=== PATIENT | male | born 1985 | race Caucasian/White ===

== ENCOUNTER 2016-12-07 16:39 | Emergency (ER) | payer MEDICAID ==
[2016-12-07 16:51] VITALS: BP 122/83
[2016-12-07] MEDS ORDERED: Lidocaine 1% MPF wEPI 200,000* 30 ML SDV INJ ONE (17:38)
--- NOTE | 2016-12-07 17:41 | UC ---
Skin Complaint HPI - HPI Summary HPI Summary: abscess left buttock x 1 month no f/c has drained a couple of times no hx MRSA - History of Current Complaint Chief Complaint: UCGeneralIllness Time Seen by Provider: 12/07/16 17:33 Stated Complaint: PERSONAL/SKIN Hx Obtained From: Patient Onset/Duration: Gradual Onset, Lasting Weeks, Worse Since - days Timing: Constant Onset Severity: Mild Current Severity: Mild Pain Intensity: 4 Pain Scale Used: 0-10 Numeric Location: Other - LEFT BUTTOCK Character: Swelling, Painful Aggravating: Touch Associated Signs & Symptoms: Positive: Negative - Allergy/Home Medications Allergies/Adverse Reactions: Allergies Allergy/AdvReac Type Severity Reaction Status Date / Time No Known Allergies Allergy Verified 12/07/16 16:51 Home Medications: Home Medications Hydrochlorothiazide TAB* [Hydrodiuril TAB*] 25 mg PO DAILY 12/07/16 [History Confirmed 12/07/16] Medical Marijuana PRN 12/07/16 [History] Review of Systems Constitutional: Negative Skin: Negative Eyes: Negative ENT: Negative Respiratory: Negative Cardiovascular: Negative Gastrointestinal: Negative Genitourinary: Negative Motor: Negative Neurovascular: Negative Musculoskeletal: Negative Neurological: Negative Psychological: Negative All Other Systems Reviewed And Are Negative: Yes PMH/Surg Hx/FS Hx/Imm Hx Previously Healthy: Yes - herion addiction - in remission Other History Of: Hepatitis C Negative For: Anticoagulant Therapy - Surgical History Surgical History: Yes Surgery Procedure, Year, and Place: Benign tumor in knee, WISDOM TEETH EXTRACTION - Family History Known Family History: Positive: Hypertension - Social History Alcohol Use: Occasionally Substance Use Type: Marijuana Substance Use Comment - Amount & Last Used: no heroin in 1 1/2 years; is a medical cannabis pt. in [place] Smoking Status (MU): Heavy Every Day Tobacco Smoker Type: Cigarettes Amount Used/How Often: 1/2 - 1 ppd Household Exposure Type: Cigarettes Physical Exam Triage Information Reviewed: Yes Appearance: Well-Appearing, No Pain Distress, Well-Nourished Vital Signs: Initial Vital Signs Temp 98.4 F 12/07/16 16:42 Pulse 81 12/07/16 16:42 Resp 17 12/07/16 16:42 BP 122/83 12/07/16 16:42 Pulse Ox 99 12/07/16 16:42 Vital Signs Reviewed: Yes Eyes: Positive: Conjunctiva Clear ENT: Positive: Hearing grossly normal. Negative: Nasal congestion, Nasal drainage, Trismus, Muffled/hoarse voice Neck: Positive: Supple, Nontender Respiratory: Positive: Lungs clear, Normal breath sounds, No respiratory distress, No accessory muscle use Cardiovascular: Positive: RRR, No Murmur Musculoskeletal: Positive: ROM Intact Neurological: Positive: Alert Skin Exam: Normal Course/Dx - Diagnoses Provider Diagnoses: left buttock abscess. Incision and drainage Procedures - Procedure Summary Procedure Summary: I & D left buttock abscess time out sterile prep anest with 2 cc lido plus epi incised 1 cc pus culture obtained - Incision and Drainage Site: left buttock Anesthesia: Lidocaine Instrument(s): Scalpel Packing: Other - no packing sterile dressing applies Discharge - Discharge Plan Condition: Stable Disposition: HOME Prescriptions: DOXYcycline CAP(*) [DOXYcycline 100MG CAP(*)] 100 mg PO BID #28 cap Patient Education Materials: Abscess (ED) Referrals: [facility] [Outside] (call for help finding a primary care provider) Additional Instructions: warm soapy compresses 4x day recheck for worsening symptom or if not noting improvement over the next 3-4 days
== END 2016-12-07 18:21 | disposition home or self-care (01) ==
LOC: UCCORT 16:39
DX: L02.31 Cutaneous abscess of buttock (principal); F17.210 Nicotine dependence, cigarettes, uncomplicated
CPT/HCPCS: 10060; 87070; 87077; 87186; 87205; 87640; 87641; 99212; G0463; J2001

== ENCOUNTER 2017-01-17 14:20 | Emergency (ER) | payer MEDICAID ==
[2017-01-17 14:45] VITALS: BP 131/71
== END 2017-01-17 15:38 | disposition left against medical advice (07) ==
LOC: UCEAST 14:20
DX: M79.9 Soft tissue disorder, unspecified (principal); Z53.21 Procedure and treatment not carried out due to patient leaving prior to being seen by health care provider

== ENCOUNTER 2017-05-19 18:25 | Emergency (ER) | payer SELFPAY ==
--- NOTE | 2017-05-19 19:10 | ED ---
Skin Complaint - HPI Summary HPI Summary: 32M presents with abscess on left buttock that has been presents with for a month. It was been getting worst for pat 4 days. He has not recurrent abscess to the area. He has history of RA and is not on any medication currently. He denies any fever or general illness. He has been using his fingers to pop the area and used a needle a couple times. He has had minimal pus from the area. He has been placing heat on the area. He denies any history of MRSA. - History of Current Complaint Chief Complaint: EDRashSkinAbscess Time Seen by Provider: 05/19/17 18:40 Stated Complaint: ABSCESS Pain Intensity: 8 - Allergy/Home Medications Allergies/Adverse Reactions: Allergies Allergy/AdvReac Type Severity Reaction Status Date / Time No Known Allergies Allergy Verified 01/17/17 14:45 PMH/Surg Hx/FS Hx/Imm Hx Endocrine/Hematology History: Denies: Hx Anticoagulant Therapy, Hx Diabetes, Hx Thyroid Disease Cardiovascular History: Reports: Hx Hypertension Denies: Hx Pacemaker/ICD Respiratory History: Denies: Hx Asthma, Hx Chronic Obstructive Pulmonary Disease (COPD) History: Denies: Hx Renal Disease Neurological History: Denies: Hx Dementia, Hx Seizures Psychiatric History: Reports: Hx Substance Abuse - Surgical History Surgery Procedure, Year, and Place: Benign tumor in knee, WISDOM TEETH EXTRACTION - Immunization History Date of Tetanus Vaccine: unknown Date of Influenza Vaccine: no Immunizations Up to Date: Yes Infectious Disease History: No Infectious Disease History: Reports: Hx Hepatitis - C, Hx Shingles Denies: Hx Human Immunodeficiency Virus (HIV), Traveled Outside the [place] in Last 30 Days - Family History Known Family History: Positive: Hypertension - Social History Alcohol Use: Rare Substance Use Type: Reports: Marijuana Substance Use Comment - Amount & Last Used: Medical useage Hx Tobacco Use: Yes Smoking Status (MU): Heavy Every Day Tobacco Smoker Type: Cigarettes Amount Used/How Often: 1/2 - 1 ppd Review of Systems Negative: Fever Negative: Chest Pain Negative: Shortness Of Breath Positive: Other - abscess left buttock All Other Systems Reviewed And Are Negative: Yes Physical Exam Triage Information Reviewed: Yes Vital Signs On Initial Exam: Initial Vitals Temp Pulse Resp BP Pulse Ox 98.3 F 100 17 168/96 98 05/19/17 18:36 05/19/17 18:36 05/19/17 18:36 05/19/17 18:36 05/19/17 18:36 Vital Signs Reviewed: Yes Appearance: Positive: Well-Appearing Skin: Positive: Warm, Dry, Other - 4cm by 6cm area of erythema and induration Head/Face: Positive: Normal Head/Face Inspection Eyes: Positive: Normal, Conjunctiva Clear Respiratory/Lung Sounds: Positive: Clear to Auscultation, Breath Sounds Present Cardiovascular: Positive: Normal, RRR Musculoskeletal: Positive: Normal Neurological: Positive: Normal Psychiatric: Positive: Normal Procedures - Incision and Drainage Site: left buttock Anesthesia: Local Instrument(s): Scalpel Packing: Gauze Diagnostics - Vital Signs Vital Signs Temp Pulse Resp BP Pulse Ox 05/19/17 18:36 98.3 F 100 17 168/96 98 - Laboratory Lab Statement: Any lab studies that have been ordered have been reviewed, and results considered in the medical decision making process. Course/Dx - Course Course Of Treatment: 32M presents with abscess on left buttock that has been presents with for a month. It was been getting worst for pat 4 days. He has not recurrent abscess to the area. He has history of RA and is not on any medication currently. He denies any fever or general illness. He has been using his fingers to pop the area and used a needle a couple times. He has had minimal pus from the area. He has been placing heat on the area. He denies any history of MRSA. on exam has indurated area on left buttock that is 6cm by 4cm. attempted I&D and only got blood. placed packing as hopefully will keep open and allow to drain. placed on doxcycyline. patient understand and agrees with plan. - Differential Diagnoses - Skin Complaint Differential Diagnoses: Abscess, Cellulitis, Contact Dermatitis - Diagnoses Provider Diagnoses: Abscess of buttock Discharge - Discharge Plan Condition: Good Disposition: HOME Prescriptions: DOXYcycline CAP(*) [DOXYcycline 100MG CAP(*)] 100 mg PO BID #19 cap Patient Education Materials: Abscess (ED) Referrals: [facility] [Outside] Additional Instructions: Take antibiotic twice a day for 10 days, first dose given in ED Apply warm compresses to area Take ibuprofen or Tylenol for pain every 6 hours Return to ED if develop fever, area of redness spreads, or any new or worsening symptoms
[2017-05-19] MEDS ORDERED: DOXYcycline CAP(*) 100 MG PO ONE (19:46)
[2017-05-19 20:11] VITALS: BP 142/82
== END 2017-05-19 20:11 | disposition home or self-care (01) ==
LOC: ED 18:25
DX: L02.31 Cutaneous abscess of buttock (principal); F17.210 Nicotine dependence, cigarettes, uncomplicated
CPT/HCPCS: 99282; A9270-GY

== ENCOUNTER → 2017-05-23 18:20 | Emergency (ER) | payer SELFPAY ==
[2017-05-23 18:39] VITALS: BP 139/82
== END | disposition left against medical advice (07) ==
LOC: ED 18:20
DX: L02.91 Cutaneous abscess, unspecified (principal); Z53.21 Procedure and treatment not carried out due to patient leaving prior to being seen by health care provider

== ENCOUNTER 2017-11-25 19:25 | Emergency (ER) | payer SELFPAY ==
[2017-11-25 22:04] LABS: Urine Appearance Cloudy; Urine Blood 3+ (Negative); Urine Color Amber; Urine Ketones Negative (Negative); Urine Protein 2+(100 mg/dL) (Negative); Urine Red Blood Cell 3+(>10/hpf) (Absent); Urine Specific Gravity 1.023 (1.010-1.030); Urine Urobilinogen Negative (Negative); Urine White Blood Cell Absent (Absent)
[2017-11-25 23:53] VITALS: BP 133/77
--- NOTE | 2017-12-06 01:20 | ED ---
Peggy Fry Elizabeth, scribed for Jorge Moreno MD on 11/25/17 at 2309 . GI/ HPI - HPI Summary HPI Summary: This patient is a 32 year old M presenting to [facility] with a chief complaint of hematuria since 5 hours ago. The patient also reports bilateral flank pain since 2 days ago, which had previously resolved but came back 5 hours ago. The patient rates the pain 1/10 in severity. Symptoms aggravated by nothing. Symptoms alleviated by nothing. Patient reports urgency, dysuria, decreased appetite, insomnia, and arthralgia. The patient notes that at first his urine was orange-colored, but it was brown when he gave a sample. Patient denies discharge. The patient reports syncope 2 months ago. The patient was diagnosed with a UTI in 2008 but denies any other hx. The patient has previously been diagnosed with hepatitis C, RA, and recently lost 115 lbs. The patient does not take any medications. - History of Current Complaint Chief Complaint: EDUrogenitalProblems Time Seen by Provider: 11/25/17 22:51 Stated Complaint: BLOOD IN URINE Hx Obtained From: Patient Onset/Duration: Started Hours Ago - 5 hours ago Timing: Intermittent Severity: Mild Current Severity: Mild Vaginal Bleeding Description: Brown Pain Intensity: 0 Location of Pain: Flank - bilateral flank pain Associated Signs and Symptoms: Positive: Weight Loss, Hematuria, Dysuria, Change in Appetite, Flank Pain Aggravating Factor(s): Nothing Alleviating Factor(s): Nothing - Allergy/Home Medications Allergies/Adverse Reactions: Allergies Allergy/AdvReac Type Severity Reaction Status Date / Time No Known Allergies Allergy Verified 01/17/17 14:45 PMH/Surg Hx/FS Hx/Imm Hx Endocrine/Hematology History: Denies: Hx Anticoagulant Therapy, Hx Diabetes, Hx Thyroid Disease Cardiovascular History: Reports: Hx Hypertension Denies: Hx Pacemaker/ICD Respiratory History: Denies: Hx Asthma, Hx Chronic Obstructive Pulmonary Disease (COPD) History: Reports: Other Problems/Disorders - hepatitis C Denies: Hx Renal Disease Musculoskeletal History: Reports: Hx Rheumatoid Arthritis Neurological History: Denies: Hx Dementia, Hx Seizures Psychiatric History: Reports: Hx Substance Abuse - Surgical History Surgery Procedure, Year, and Place: Benign tumor in knee, WISDOM TEETH EXTRACTION - Immunization History Date of Tetanus Vaccine: unknown Date of Influenza Vaccine: no Infectious Disease History: No Infectious Disease History: Reports: Hx Hepatitis - C, Hx Shingles Denies: Hx Human Immunodeficiency Virus (HIV), Traveled Outside the [place] in Last 30 Days - Family History Known Family History: Positive: Hypertension - Social History Alcohol Use: Rare Substance Use Type: Reports: Marijuana Substance Use Comment - Amount & Last Used: Medical useage Hx Tobacco Use: Yes Smoking Status (MU): Light Every Day Tobacco Smoker Type: Cigarettes Amount Used/How Often: 1/2 - 1 ppd Review of Systems Negative: Fever Negative: Epistaxis Positive: dysuria, flank pain - bilateral, hematuria Positive: Arthralgia All Other Systems Reviewed And Are Negative: Yes Physical Exam - Summary Physical Exam Summary: Appearance: Well-appearing, Well-nourished, lying in bed comfortably Skin: Warm, dry, no obvious rash Eyes: sclera anicteric, no conjunctival pallor ENT: mucous membranes moist, pharynx appears normal Neck: Supple, nontender Respiratory: Clear to auscultation, no signs of respiratory distress Cardiovascular: Normal S1, S2. No murmurs. Normal distal pulses in tibial and radial bilaterally. Abdomen: Soft, nontender, normal active bowel sounds present Musculoskeletal: Normal, Strength/ROM Intact Neurological: A&Ox3, awake and alert, mentation is normal, speech is fluent and appropriate Psychiatric: affect is normal, does not appear anxious or depressed Triage Information Reviewed: Yes Vital Signs On Initial Exam: Initial Vitals Temp Pulse Resp BP Pulse Ox 97.9 F 104 18 142/91 99 11/25/17 19:26 11/25/17 19:26 11/25/17 19:26 11/25/17 19:26 11/25/17 19:26 Vital Signs Reviewed: Yes Diagnostics - Vital Signs Vital Signs Temp Pulse Resp BP Pulse Ox 11/25/17 22:53 89 159/105 98 11/25/17 21:27 98.3 F 71 16 143/85 100 11/25/17 19:26 97.9 F 104 18 142/91 99 - Laboratory Lab Results: Lab Results 11/25/17 Range/Units 21:27 Urine Color [place] Urine Appearance Cloudy Urine pH 5.0 (5-9) Ur Specific [place] 1.023 (1.010-1.030) Urine Protein 2+(100 mg/dl) A (Negative) Urine Ketones Negative (Negative) Urine Blood 3+ A (Negative) Urine Nitrate Negative (Negative) Urine Bilirubin Negative (Negative) Urine Urobilinogen Negative (Negative) Ur Leukocyte Esterase Negative (Negative) Urine WBC (Auto) Absent (Absent) Urine RBC (Auto) 3+(>10/hpf) A (Absent) Calcium Oxalate Crystal Present A (Absent) Urine Bacteria Absent (Absent) Hyaline Casts Present A (Absent) Urine Glucose Negative (Negative) Lab Statement: Any lab studies that have been ordered have been reviewed, and results considered in the medical decision making process. GIGU Course/Dx - Diagnoses Provider Diagnoses: Hematuria Discharge - Sign-Out/Discharge Documenting (check all that apply): Discharge/Admit/Transfer - Discharge Plan Condition: Good Disposition: ELOPEMENT Referrals: No Primary Care Phys,NOPCP [Primary Care Provider] - - Billing Disposition and Condition Condition: GOOD Disposition: Elopement The documentation as recorded by the Peggy cunningham Elizabeth accurately reflects the service I personally performed and the decisions made by , Jorge Moreno MD.
== END 2017-11-25 23:52 | disposition left against medical advice (07) ==
LOC: ED 19:25 → UNDOADMIN 22:23 → MEDTELE 22:23 → ED 23:52
DX: R31.9 Hematuria, unspecified (principal); R30.0 Dysuria; R10.84 Generalized abdominal pain; F17.210 Nicotine dependence, cigarettes, uncomplicated
CPT/HCPCS: 81003; 81015; 99282